=== PATIENT | female | born 1940 | race Caucasian/White ===

== ENCOUNTER 2017-01-11 06:29 | Day surgery (SDC) | payer MEDICARE, OTHER ==
[2017-01-11] MEDS ORDERED: Lactated Ringers 1,000 ML IV SCH (06:30)
== END 2017-01-11 06:50 | disposition home or self-care (01) ==
LOC: JP.SDS 06:29
PROVIDERS: ATTEND Surgery
DX: K21.9 Gastro-esophageal reflux disease without esophagitis (principal); Z53.8 Procedure and treatment not carried out for other reasons; Z88.8 Allergy status to other drugs, medicaments and biological substances

== ENCOUNTER 2017-01-15 08:27 | Day surgery (SDC) | payer MEDICARE, OTHER ==
[~2017-01-15 08:27] MED LIST: Propofol 200 MG/20 ML SDV ONE; fentaNYL 100 MCG/2 ML SDV ONE
[2017-01-15] MEDS ORDERED: Lactated Ringers 1,000 ML IV SCH (09:15)
[2017-01-15 11:43] VITALS: BP 117/59
--- NOTE | 2017-01-15 18:34 | OR ---
DATE OF PROCEDURE: 01/15/2017 PREOPERATIVE DIAGNOSIS: Gastroesophageal reflux disease. POSTOPERATIVE DIAGNOSES: Small duodenal ulcer, antral gastritis, and gastroesophageal reflux disease. PROCEDURES: Esophagogastroduodenoscopy with antral biopsies for CLOtest and biopsy of antrum and duodenum for pathology to look for Helicobacter pylori, biopsy of gastroesophageal junction. SURGEON: Mike Velasquez MD. ANESTHESIA: IV anesthesia with monitored anesthesia care. INDICATIONS: This 76-year-old white female is referred for upper endoscopy because of gastroesophageal reflux disease. She says she last underwent upper endoscopy about 8 years ago in [place]. I counseled her for the procedure and she gave her informed consent to proceed. DESCRIPTION OF PROCEDURE: The patient was placed in the left lateral decubitus position. IV anesthesia was administered by the Anesthesia Service. Time-out was held. The flexible video Olympus upper endoscope was passed through her mouth, down her esophagus, and into her stomach. The scope was easily passed through the pylorus into the duodenal reaching its third portion. The scope was slowly withdrawn, examining the mucosa throughout. In the duodenal bulb, we encountered a superficial ulcer. The scope was brought back up through the pylorus. There was some mild erythema in the antrum and then some red streaking proximally in the stomach consistent with antral gastritis. We obtained antral biopsies for CLOtest and biopsy of the duodenum and the antrum for pathology to look for Helicobacter pylori. The scope was retroflexed. The most proximal stomach appeared unremarkable. The scope was straightened and brought up to the GE junction. There was some evidence of chronic inflammation. The Z-line was not straight. There was islands of gastric mucosa proximally in the esophagus. We obtained multiple, totalling six, biopsies of the gastroesophageal junction. The scope was then brought proximally up through remainder of the esophagus, which otherwise appeared unremarkable and it was removed. She tolerated the procedure well. Mike Velasquez MD /[id number]
== END 2017-01-15 11:52 | disposition home or self-care (01) ==
LOC: JP.SDS 08:27
PROVIDERS: ATTEND Surgery
DX: K29.50 Unspecified chronic gastritis without bleeding (principal); K26.9 Duodenal ulcer, unspecified as acute or chronic, without hemorrhage or perforation; K21.0 Gastro-esophageal reflux disease with esophagitis; Z88.8 Allergy status to other drugs, medicaments and biological substances
CPT/HCPCS: 43239; 87081; J2704; J3010; J7120; 88305; 88342